=== PATIENT | female | born 1985 | race Caucasian/White ===

== ENCOUNTER 2021-10-14 14:54 | Emergency (ER) | payer OTHER ==
[2021-10-14 18:01] LABS: Appearance,Urine Clear (Clear); Bilirubin,Urine Negative (Negative); Blood,Urine Negative (Negative); Color,Urine Yellow; Glucose,Urine (UA) Negative (Negative); Ketones,Urine Negative (Negative); Leukocyte Esterase,Urine Negative (Negative); Nitrite,Urine Negative (Negative); Protein,Urine Negative (Negative); Specific Gravity,Urine 1.016 (1.001-1.035); Urobilinogen,Urine <2.0 mg/dL (<2.0)
[2021-10-14 18:21] VITALS: TEMP 98
[2021-10-14] MEDS ORDERED: SODIUM CHLORIDE 0.9% 1,000 ML IV STA (18:21)
[2021-10-14 18:53] LABS: Anisocytosis Slight; Basophils % (A) 0 %; Eosinophils # (A) 0.1 k/uL (0-0.7); Eosinophils % (A) 3 %; HGB 12.8 gm/dL (11.4-16.0); Lymphocytes # (A) 0.7 k/uL (1.0-4.8); Lymphocytes % (A) 32 %; MCH 31.3 pg (25.0-35.0); MCHC 32.7 g/dL (31.0-37.0); MCV 95.7 fL (80.0-100.0); Mean Platelet Volume 10.9; Monocytes # (A) 0.2 k/uL (0-1.0); Monocytes % (A) 9 %; Neutrophils # (A) 1.1 k/uL (1.3-7.7); Neutrophils % (A) 53 %; RBC 4.07 m/uL (3.80-5.40); RDW 16.8 % (11.5-15.5); WBC 2.1 k/uL (3.8-10.6)
[2021-10-14 19:00] LABS: African American GFR (CKD) >90 (>60 ml/min/1.73 sqM); Anion Gap 6 mmol/L; Blood Urea Nitrogen 10 mg/dL (7-17); Calcium 8.6 mg/dL (8.4-10.2); Carbon Dioxide 21 mmol/L (22-30); Chloride 109 mmol/L (98-107); Glucose 83 mg/dL (74-99); Magnesium 1.6 mg/dL (1.6-2.3); Non-African American GFR(CKD) >90 (>60 ml/min/1.73 sqM); Sodium 136 mmol/L (137-145)
[2021-10-14 19:06] LABS: Platelet Count 36 k/uL (150-450)
--- NOTE | 2021-10-14 19:22 | ED ---
General Adult HPI - General Chief complaint: Headache Stated complaint: Dizziness Time Seen by Provider: 10/14/21 18:09 Source: patient, RN notes reviewed Mode of arrival: EMS Limitations: no limitations - History of Present Illness Initial comments: This is a pleasant 36-year-old female who arise from sitting to her rehabilitation center where she is undergoing rehab for alcoholism. She presents today after having a near syncopal episode. Patient states she stood up after eating became lightheaded like she was going to pass out. Patient states that her blood pressure taken and it seemed below. She was sent here for evaluation. Patient states she did develop a headache after this but is actually feeling much better at this time. Patient states she was placed on yesterday. She denies any other medications that she has not taken before. She does take spironolactone. She denies any vision or hearing changes. No numbness or tingling. No focal weakness. She did not fall. There is no injury. Denies any neck pain. No difficulty with speech or swallowing. No history of cardiac disease. Lightheadedness and headache which has resolved. no fever or chills, no changes in vision or hearing, no sore throat or difficulty with speech, no neck pain, no chest pain or shortness of breath, no abdominal pain, no nausea or vomiting, no changes in urination or bowel movements, no numbness or tingling, no extremity pain, no skin rashes or lesions. - Related Data Allergies Allergy/AdvReac Type Severity Reaction Status Date / Time acetaminophen Allergy Anaphylaxis Verified 10/14/21 15:06 [From Darvocet-N] amitriptyline Allergy Hallucinati Verified 10/14/21 15:06 ons propoxyphene Allergy Anaphylaxis Verified 10/14/21 15:06 [From Darvocet-N] trazodone Allergy Hallucinati Verified 10/14/21 15:06 ons Review of Systems ROS Statement: Those systems with pertinent positive or pertinent negative responses have been documented in the HPI. ROS Other: All systems not noted in ROS Statement are negative. Past Medical History Past Medical History: No Reported History Additional Past Medical History / Comment(s): Migraine headache, thrombocytopenia, leukopenia, alcoholism History of Any Multi-Drug Resistant Organisms: None Reported Additional Past Surgical History / Comment(s): surgery for stomach ulcer Past Psychological History: Anxiety Smoking Status: Current every day smoker Past Alcohol Use History: None Reported Past Drug Use History: Marijuana General Exam - General Exam Comments Initial Comments: Healthy-appearing 36-year-old female who does not appear to be in any significant distress. Patient does not appear to be ill or toxic. Vital signs reviewed. Cranial nerves II through XII are intact. Limitations: no limitations General appearance: alert, in no apparent distress Head exam: Present: atraumatic, normocephalic, normal inspection Eye exam: Present: normal appearance, PERRL, EOMI. Absent: scleral icterus, conjunctival injection, periorbital swelling ENT exam: Present: normal exam, normal oropharynx, mucous membranes moist, TM's normal bilaterally, normal external ear exam. Absent: mucous membranes dry Neck exam: Present: normal inspection, full ROM. Absent: tenderness, meningismus, lymphadenopathy Respiratory exam: Present: normal lung sounds bilaterally. Absent: respiratory distress, wheezes, rales, rhonchi, stridor Cardiovascular Exam: Present: regular rate, normal rhythm, normal heart sounds. Absent: systolic murmur, diastolic murmur, rubs, gallop, clicks GI/Abdominal exam: Present: soft, normal bowel sounds. Absent: distended, tenderness, guarding, rebound, rigid Extremities exam: Present: normal inspection, full ROM, normal capillary refill. Absent: tenderness, pedal edema, joint swelling, calf tenderness Back exam: Present: normal inspection Neurological exam: Present: alert, oriented X3, CN II-XII intact, normal gait, other (No focal neurologic deficits. Frost Coma Scale is 15.). Absent: altered, motor sensory deficit, reflexes normal Psychiatric exam: Present: normal affect, normal mood Skin exam: Present: warm, dry, intact, normal color. Absent: rash Course Vital Signs 10/14/21 10/14/21 10/14/21 15:01 18:13 18:16 Temperature 98.4 F 98 F Pulse Rate 60 80 66 Pulse Rate [ Sitting Pulse Oximetery] Pulse Rate [ Standing Pulse Oximetery] Pulse Rate [ Supine] Respiratory 18 18 18 Rate Blood Pressure 97/38 145/56 147/57 Blood Pressure [Right Arm Sitting] Blood Pressure [Right Arm Standing] Blood Pressure [Right Arm Supine] O2 Sat by Pulse 99 98 99 Oximetry 10/14/21 19:54 Temperature Pulse Rate Pulse Rate [ 59 L Sitting Pulse Oximetery] Pulse Rate [ 64 Standing Pulse Oximetery] Pulse Rate [ 57 L Supine] Respiratory 20 Rate Blood Pressure Blood Pressure 135/55 [Right Arm Sitting] Blood Pressure 137/45 [Right Arm Standing] Blood Pressure 123/40 [Right Arm Supine] O2 Sat by Pulse 99 Oximetry - Reevaluation(s) Reevaluation #1: 10/14/21 19:25 Medical record is reviewed Symptoms are improved here in the emergency department Patient is informed of results and questions answered Patient in no distress Reevaluation #2: 10/14/21 20:05 Medical record is reviewed Symptoms are resolved, repeat neurological examination is normal. Patient alert and oriented 4, cranial nerves II through XII intact Patient is informed of results and questions answered Patient in no distress EKG Findings - EKG Comments: EKG Findings:: EKG done at 1831 and reviewed with ED attending physician reveals sinus bradycardia with a rate of 56, nonspecific T-wave abnormalities mostly related to what appears to be artifact. No other acute changes. Normal axis. Normal QRS morphology. Normal intervals. Medical Decision Making - Medical Decision Making Patient presents to likely consistent with near syncopal episode. We will order baseline laboratory work, EKG, orthostatics, urinalysis, and reevaluation. Patient's headache has resolved. However patient has low platelets. Will order a computed tomography scan after discussion with ED attending physician. Patient noted to have white blood cell, 2100, neutrophil count of 1100, lym phocytes of 700, The case was discussed in detail with ED attending physician. Presentation, findings, treatment plan discussed in detail. Patient reevaluated prior to discharge. I did review the patient's laboratory findings with her. Patient's blood dyscrasias or actually chronic for the patient as she has had this before. She states that her platelet count has been in the 20s and 30s previously. Patient's had a low white blood cell count as well. Patient has previous been referred to a charrer but did not go. Patient states that she knows that she needs to make an appointment. I'm going to provide her follow-up with him otology today. - Lab Data Result diagrams: 10/14/21 18:39 10/14/21 18:39 Lab Results 10/14/21 10/14/21 10/14/21 Range/Units 17:31 17:31 18:39 WBC 2.1 L (3.8-10.6) k/uL RBC 4.07 (3.80-5.40) m/uL Hgb 12.8 (11.4-16.0) gm/dL Hct 39.0 (34.0-46.0) % MCV 95.7 (80.0-100.0) fL MCH 31.3 (25.0-35.0) pg MCHC 32.7 (31.0-37.0) g/dL RDW 16.8 H (11.5-15.5) % Plt Count 36 L (150-450) k/uL MPV 10.9 Neutrophils % 53 % Lymphocytes % 32 % Monocytes % 9 % Eosinophils % 3 % Basophils % 0 % Neutrophils # 1.1 L (1.3-7.7) k/uL Lymphocytes # 0.7 L (1.0-4.8) k/uL Monocytes # 0.2 (0-1.0) k/uL Eosinophils # 0.1 (0-0.7) k/uL Basophils # 0.0 (0-0.2) k/uL Manual Slide Review Performed Anisocytosis Slight Sodium (137-145) mmol/L Potassium (3.5-5.1) mmol/L Chloride (98-107) mmol/L Carbon Dioxide (22-30) mmol/L Anion Gap mmol/L BUN (7-17) mg/dL Creatinine (0.52-1.04) mg/dL Est GFR (CKD-EPI)AfAm (>60 ml/min/1.73 sqM) Est GFR (CKD-EPI)NonAf (>60 ml/min/1.73 sqM) Glucose (74-99) mg/dL Calcium (8.4-10.2) mg/dL Magnesium (1.6-2.3) mg/dL Urine Color Yellow Urine Appearance Clear (Clear) Urine pH 7.0 (5.0-8.0) Ur Specific [place] 1.016 (1.001-1.035) Urine Protein Negative (Negative) Urine Glucose (UA) Negative (Negative) Urine Ketones Negative (Negative) Urine Blood Negative (Negative) Urine Nitrite Negative (Negative) Urine Bilirubin Negative (Negative) Urine Urobilinogen <2.0 (<2.0) mg/dL Ur Leukocyte Esterase Negative (Negative) Urine HCG, Qual Not Detected (Not Detectd) 10/14/21 Range/Units 18:39 WBC (3.8-10.6) k/uL RBC (3.80-5.40) m/uL Hgb (11.4-16.0) gm/dL Hct (34.0-46.0) % MCV (80.0-100.0) fL MCH (25.0-35.0) pg MCHC (31.0-37.0) g/dL RDW (11.5-15.5) % Plt Count (150-450) k/uL MPV Neutrophils % % Lymphocytes % % Monocytes % % Eosinophils % % Basophils % % Neutrophils # (1.3-7.7) k/uL Lymphocytes # (1.0-4.8) k/uL Monocytes # (0-1.0) k/uL Eosinophils # (0-0.7) k/uL Basophils # (0-0.2) k/uL Manual Slide Review Anisocytosis Sodium 136 L (137-145) mmol/L Potassium 5.0 (3.5-5.1) mmol/L Chloride 109 H (98-107) mmol/L Carbon Dioxide 21 L (22-30) mmol/L Anion Gap 6 mmol/L BUN 10 (7-17) mg/dL Creatinine 0.48 L (0.52-1.04) mg/dL Est GFR (CKD-EPI)AfAm >90 (>60 ml/min/1.73 sqM) Est GFR (CKD-EPI)NonAf >90 (>60 ml/min/1.73 sqM) Glucose 83 (74-99) mg/dL Calcium 8.6 (8.4-10.2) mg/dL Magnesium 1.6 (1.6-2.3) mg/dL Urine Color Urine Appearance (Clear) Urine pH (5.0-8.0) Ur Specific [place] (1.001-1.035) Urine Protein (Negative) Urine Glucose (UA) (Negative) Urine Ketones (Negative) Urine Blood (Negative) Urine Nitrite (Negative) Urine Bilirubin (Negative) Urine Urobilinogen (<2.0) mg/dL Ur Leukocyte Esterase (Negative) Urine HCG, Qual (Not Detectd) - Radiology Data Radiology results: report reviewed (No acute findings), image reviewed Disposition Clinical Impression: Syncope, near, Headache, Cigarette smoker Narrative: Chronic thrombocytopenia and leukopenia, headache resolved Disposition: HOME SELF-CARE Condition: Good Instructions (If sedation given, give patient instructions): Acute Headache (ED), Near Syncope (ED) Additional Instructions: Including proper hydration. Make a follow-up with the charrer as discussed. Follow-up with your regular physician as directed. Return to the ER immediately if any symptoms worsen, new symptoms arise, or any other problems develop. Is patient prescribed a controlled substance at d/c from ED?: No Referrals: Brendan Spencer MD [STAFF PHYSICIAN] - 1-2 days Time of Disposition: 20:07
--- NOTE | 2021-10-14 19:55 | CT ---
EXAMINATION TYPE: CT brain wo con DATE OF EXAM: 10/14/2021 COMPARISON: None HISTORY: COHN, dizzy, lightheaded, photophobia, nausea x [address] DLP: 1009.4 mGycm. Automated Exposure Control for Dose Reduction was Utilized. TECHNIQUE: CT scan of the head is performed without contrast. FINDINGS: There is no acute intracranial hemorrhage, mass effect, or midline shift identified. The ventricles and sulci are within normal limits in size. The globes are intact and the visualized sin uses are clear. IMPRESSION: No acute intracranial hemorrhage, mass effect, or midline shift is seen.
[2021-10-14 19:58] VITALS: BP 123/40; PULSE 57; RESP 20
[2021-10-14 20:21] LABS: INR 1.3 (<1.2); Partial Thromboplastin Time 26.1 sec (22.0-30.0); Prothrombin Time 13.6 sec (9.0-12.0)
== END 2021-10-14 20:31 | disposition home or self-care (01) ==
LOC: EC 14:54
DX: R55 Syncope and collapse (principal); R51.9 Headache, unspecified; F17.210 Nicotine dependence, cigarettes, uncomplicated; F12.90 Cannabis use, unspecified, uncomplicated
CPT/HCPCS: 36415; 70450; 80048; 81003; 81025; 83735; 85025; 85610; 85730; 93005; 96360; 99284

== ENCOUNTER 2022-08-22 19:31 | Emergency (ER) | payer OTHER ==
[2022-08-22 19:41] VITALS: BP 124/55; PULSE 108; TEMP 98
--- NOTE | 2022-08-22 20:02 | XR ---
EXAMINATION TYPE: XR tibia fibula LT DATE OF EXAM: 08/22/2022 COMPARISON: NONE HISTORY: Pain TECHNIQUE: 2 views FINDINGS: I see no fracture nor dislocation. Ankle joint and knee joint appear intact. There is Achil les calcaneal spurring. IMPRESSION: Calcaneal spurring. No fracture.
[2022-08-22] MEDS ORDERED: KETOROLAC 15 MG/ML 1 ML VIAL IM STA (20:57)
--- NOTE | 2022-08-22 21:13 | ED ---
Lower Extremity Injury HPI - General Chief Complaint: Extremity Injury, Lower Stated Complaint: left leg injury Time Seen by Provider: 08/22/22 20:37 Source: patient, RN notes reviewed Mode of arrival: wheelchair Limitations: no limitations - History of Present Illness Initial Comments: This is a 37-year-old female who presents to the emergency department for left leg pain. States that about a week ago, she hit her leg on the corner of a golf cart. She has since had increased pain and bruising. She has not taken any [id number] anti-inflammatories to treat the pain, however she does state that it is very bothersome. She has not been applying ice or doing anything else to treat her symptoms. She is still able to walk. States that she wants to make sure it is not broken. Denies any fevers, chills, sore throat, cough, dyspnea, chest pain, palpitations, abdominal pain, nausea, vomiting, diarrhea, back pain, or headaches. MD Complaint: leg injury Onset/Timin -: week(s) - Related Data Allergies Allergy/AdvReac Type Severity Reaction Status Date / Time acetaminophen Allergy Anaphylaxis Verified 10/14/21 15:06 [From Darvocet-N] amitriptyline Allergy Hallucinati Verified 10/14/21 15:06 ons propoxyphene Allergy Anaphylaxis Verified 10/14/21 15:06 [From Darvocet-N] trazodone Allergy Hallucinati Verified 10/14/21 15:06 ons Review of Systems ROS Statement: Those systems with pertinent positive or pertinent negative responses have been documented in the HPI. ROS Other: All systems not noted in ROS Statement are negative. Past Medical History Past Medical History: No Reported History Additional Past Medical History / Comment(s): Migraine headache, thrombocytopenia, leukopenia, alcoholism History of Any Multi-Drug Resistant Organisms: None Reported Additional Past Surgical History / Comment(s): surgery for stomach ulcer Past Psychological History: Anxiety Smoking Status: Current every day smoker Past Alcohol Use History: None Reported Past Drug Use History: Marijuana General Exam Limitations: no limitations General appearance: alert, in no apparent distress Head exam: Present: atraumatic, normocephalic, normal inspection Respiratory exam: Present: normal lung sounds bilaterally. Absent: respiratory distress, wheezes, rales, rhonchi, stridor Cardiovascular Exam: Present: regular rate, normal rhythm, normal heart sounds. Absent: systolic murmur, diastolic murmur, rubs, gallop, clicks Extremities exam: Present: other (Ecchymosis of the left tib-fib with a 3cm hematoma in the center. Minor tenderness to palpation. Full active and passive range of motion. 2+ dorsalis pedis and tibialis posterior pulses.) Neurological exam: Present: alert, oriented X3, CN II-XII intact Psychiatric exam: Present: normal affect, normal mood Course Vital Signs 08/22/22 08/22/22 19:36 22:17 Temperature 98 F Pulse Rate 108 H Respiratory 20 18 Rate Blood Pressure 124/55 O2 Sat by Pulse 97 Oximetry Medical Decision Making - Medical Decision Making This is a 37-year-old female who presents to the emergency department for left leg pain. Was pt. sent in by a medical professional or institution? @ -No Did you speak to anyone other than the patient for history? @ -No Did you review nursing and triage notes? @ -Yes, and I agree, it is accurate with regards to the patient's symptoms. Were old charts reviewed? @ -No Differential Diagnosis? @ -Differential Leg Pain: Leg fracture, leg sprain, DVT, PVD, arterial insufficiency, iliac artery aneurysm, cellulitis, compartment syndrome, tendinopathy, nerve entrapment, piriformis syndrome, osteoarthritis, rhabdomyolysis, myositis, cramping from an electrolyte imbalance, this is not meant to be an all inclusive list. X-rays interpreted by me (1pt min.)? @ -X-ray of the left tib-fib obtained. My interpretation identifies no acute fractures or dislocations. What testing was considered but not performed? (CT, X-rays, U/S, labs)? Why? @ -None What meds were considered but not given? Why? @ -None Did you discuss the management of the patient with other professionals? @ -No Did you reconcile home meds? @ -No Was smoking cessation discussed for >3mins.? @ -No Was critical care preformed (if so, how long)? @ -No Were there social determinants of health that impacted care today? How? (Homelessness, low income, unemployed, alcoholism, drug addiction, transportation, low edu. Level, literacy, decrease access to med. care, care home, rehab)? @ -No Was there de-escalation of care discussed even if they declined? (Discuss DNR or withdrawal of care, Hospice)? @ -No What co-morbidities impacted this encounter? (DM, HTN, Smoking, COPD, CAD, Cancer, CVA, Hep., AIDS, mental health diagnosis, sleep apnea, morbid obesity)? @ -None Was patient admitted / discharged? @ -Discharged. X-rays obtained revealing no acute findings. She was given IM Toradol for pain relief. She is advised to [id number] ibuprofen as needed for pain relief and to alternate with ice and heat as needed. Undiagnosed new problem with uncertain prognosis? @ -None Drug Therapy requiring intensive monitoring for toxicity (Heparin, Nitro, Insulin, Cardizem)? @ -None Were any procedures done? @ -None Diagnosis/symptom? @ -Left leg pain Acute, or Chronic, or Acute on Chronic? @ -Acute Uncomplicated (without systemic symptoms) or Complicated (systemic symptoms)? @ -Uncomplicated Side effects of treatment? @ -None Exacerbation, Progression, or Severe Exacerbation] @ -Not applicable Poses a threat to life or bodily function? @ -No Return precautions reviewed in depth, the patient is instructed to return to the emergency department with any new, worsening, or concerning symptoms. Patient verbalized understanding. This case was discussed in detail with the attending ED physician, Dr. Galvan. Presentation, findings, and treatment plan discussed in detail as well. - Radiology Data Radiology results: report reviewed, image reviewed Disposition Clinical Impression: Contusion of left lower leg Disposition: HOME SELF-CARE Instructions (If sedation given, give patient instructions): Leg Pain (ED) Additional Instructions: Return to the emergency department with any new, worsening, or concerning symptoms. Take ibuprofen as needed for pain relief. You can apply ice or heat, whichever you find more beneficial. Try wrapping the leg with an robbie bandage. Follow up with your primary care provider in 1-2 days. Is patient prescribed a controlled substance at d/c from ED?: No Referrals: None,Stated [Primary Care Provider] - 1-2 days
[2022-08-22 22:18] VITALS: RESP 18
== END 2022-08-22 22:17 | disposition home or self-care (01) ==
LOC: EC 19:31
DX: S80.12XA Contusion of left lower leg, initial encounter (principal); F41.9 Anxiety disorder, unspecified; F17.200 Nicotine dependence, unspecified, uncomplicated; F12.90 Cannabis use, unspecified, uncomplicated; Z88.6 Allergy status to analgesic agent; Z88.8 Allergy status to other drugs, medicaments and biological substances; W21.13XA Struck by golf club, initial encounter
CPT/HCPCS: 73590; 99283; 96372; J1885

== ENCOUNTER 2023-10-05 10:04 | Inpatient (IN) | payer OTHER ==
--- NOTE | 2023-10-05 10:29 | ED ---
Abdominal Pain HPI - General Source: patient, RN notes reviewed Mode of arrival: ambulatory Limitations: no limitations - History of Present Illness MD Complaint: abdominal pain <Samia Jimenez - Last Filed: 10/05/23 17:07> <Wendy Briceno - Last Filed: 10/08/23 00:16> - General Chief Complaint: Abdominal Pain Stated Complaint: Abdominal Pain Time Seen by Provider: 10/05/23 10:17 - History of Present Illness Initial Comments: This is a 38-year-old female who presents to the emergency department for abdominal pain and hematemesis. Patient is currently at [facility] [place] for alcohol abuse. States that early this morning, she started to become nauseous and vomit. The vomit was dark red blood mixed in with her saliva. States that she also had clots mixed in with this. Several months ago she did end up developing a tear in her esophagus that required surgical intervention. Reports upper abdominal pain as well. Also has a headache and feels somewhat lightheaded. Not taking any blood thinners. (Samia Jimenez) - Related Data Home Medications Medication Instructions Recorded Confirmed Calc/Mag/Zinc/Cassandra D 1 tab PO TID PRN 10/05/23 10/05/23 Folic Acid 1 mg PO DAILY 10/05/23 10/05/23 Ibuprofen [Motrin Ib] 600 mg PO Q4H PRN 10/05/23 10/05/23 Lactulose 20 gm PO TID PRN 10/05/23 10/05/23 Melatonin 3 mg PO HS 10/05/23 10/05/23 Multivitamins, Thera [Multivitamin 1 tab PO DAILY 10/05/23 10/05/23 (formulary)] Omeprazole [PriLOSEC] 20 mg PO DAILY 10/05/23 10/05/23 Spironolactone [Aldactone] 50 mg PO DAILY 10/05/23 10/05/23 Thiamine [Vitamin B-1] 100 mg PO DAILY 10/05/23 10/05/23 Torsemide [Demadex] 10 mg PO DAILY 10/05/23 10/05/23 busPIRone HCl [Buspar] 10 mg PO TID PRN 10/05/23 10/05/23 Allergies Allergy/AdvReac Type Severity Reaction Status Date / Time acetaminophen Allergy Anaphylaxis Verified 10/05/23 11:17 [From Darvocet-N] amitriptyline Allergy Hallucinati Verified 10/05/23 11:17 ons propoxyphene Allergy Anaphylaxis Verified 10/05/23 11:17 [From Darvocet-N] trazodone Allergy Hallucinati Verified 10/05/23 11:17 ons Review of Systems ROS Other: All systems not noted in ROS Statement are negative. <Samia Jimenez - Last Filed: 10/05/23 17:07> ROS Other: All systems not noted in ROS Statement are negative. <Wendy Briceno - Last Filed: 10/08/23 00:16> ROS Statement: Those systems with pertinent positive or pertinent negative responses have been documented in the HPI. Past Medical History Past Medical History: No Reported History Additional Past Medical History / Comment(s): Migraine headache, thrombocyto penia, leukopenia, alcoholism History of Any Multi-Drug Resistant Organisms: None Reported Additional Past Surgical History / Comment(s): surgery for stomach ulcer, esophageal tear surgery Past Psychological History: Anxiety Smoking Status: Current every day smoker Past Alcohol Use History: None Reported Past Drug Use History: Marijuana <Samia Jimenez - Last Filed: 10/05/23 17:07> General Exam Limitations: no limitations General appearance: alert, anxious Head exam: Present: atraumatic, normocephalic, normal inspection Respiratory exam: Present: normal lung sounds bilaterally. Absent: respiratory distress, wheezes, rales, rhonchi, stridor Cardiovascular Exam: Present: regular rate, normal rhythm, normal heart sounds. Absent: systolic murmur, diastolic murmur, rubs, gallop, clicks GI/Abdominal exam: Present: soft, tenderness (Upper abdomen), normal bowel sounds. Absent: distended Neurological exam: Present: alert, oriented X3, CN II-XII intact Psychiatric exam: Present: normal affect, normal mood Skin exam: Present: warm, dry, intact, normal color. Absent: rash <Samia Jimenez - Last Filed: 10/05/23 17:07> Course Vital Signs 10/05/23 10/05/23 10/05/23 10:09 15:00 17:37 Temperature 98.1 F Pulse Rate 76 76 79 Respiratory 18 16 12 Rate Blood Pressure 129/69 107/33 119/46 O2 Sat by Pulse 100 98 99 Oximetry Medical Decision Making - Lab Data Result diagrams: 10/05/23 10:31 10/05/23 10:31 - Radiology Data Radiology results: report reviewed, image reviewed <Samia Jimenez - Last Filed: 10/05/23 17:07> - Lab Data Result diagrams: 10/06/23 15:42 10/06/23 09:55 <Wendy Briceno - Last Filed: 10/08/23 00:16> - Medical Decision Making This is a 38 year old female who presents to the emergency department for abdominal pain and hematemesis. Was pt. sent in by a medical professional or institution? @ -[facility] Did you speak to anyone other than the patient for history? @ -No Did you review nursing and triage notes? @ -Yes, and I agree, it is accurate with regards to the patient's symptoms. Were old charts reviewed? @ -No Differential Diagnosis? @ -Differential Abdominal Pain Women: Appendicitis, Cholecystitis, diverticulosis, ischemic bowel, pancreatitis, hepatitis, UTI, gastroenteritis, AAA, incarcerated hernia, bowel obstruction, constipation, inflammatory bowel, hepatitis, peptic ulcer disease, splenic infarction, perforated viscus, vulvitis, ovarian torsion, PID, kidney stone, placenta abruption, this is not meant to be an all-inclusive list EKG interpreted by me (3pts min.)? @ -EKG interpreted by me demonstrating the following: X-rays interpreted by me (1pt min.)? @ -Not obtained CT interpreted by me (1pt min.)? @ -CT of the abdomen and pelvis obtained. My interpretation identifies no active GI bleeding. U/S interpreted by me (1pt. min.)? @ -Not obtained What testing was considered but not performed? (CT, X-rays, U/S, labs)? Why? @ -None What meds were considered but not given? Why? @ -None Did you discuss the management of the patient with other professionals? @ -Yes, Dr. Weber, who accepts the patient for admission. Did you reconcile home meds? @ -Yes Was smoking cessation discussed for >3mins.? @ -I discussed smoking cessation for greater than 3 minutes. The risk of smoking were discussed with the patient including but not limited to risks of cancer, stroke, coronary artery disease and COPD. Also discussed with patient were multiple methods of quitting smoking. Lastly we discussed the financial cost of smoking. Was critical care preformed (if so, how long)? @ -No Were there social determinants of health that impacted care today? How? (Homelessness, low income, unemployed, alcoholism, drug addiction, transportation, low edu. Level, literacy, decrease access to med. care, detention, rehab)? @ -Alcoholism, causing the liver cirrhosis and multitude of other health problems. Was there de-escalation of care discussed even if they declined? (Discuss DNR or withdrawal of care, Hospice)? @ -No What co-morbidities impacted this encounter? (DM, HTN, Smoking, COPD, CAD, Cancer, CVA, Hep., AIDS, mental health diagnosis, sleep apnea, morbid obesity)? @ -Alcoholism, smoking Was patient admitted / discharged? @ -Admitted. Lab work obtained demonstrating leukopenia with a white blood cell count of 2.1 and thrombocytopenia with a platelet count of 19. Patient does report that this is chronic, but does not currently have a drawing press operator. She has an appointment next month with a drawing press operator at [facility]. LFTs are also elevated and troponin bumped at 0.041. CT scan of the abdomen and pelvis obtained demonstrating no definitive evidence of active GI bleeding at this time. She does have cirrhosis with signs of portal venous hypertension including splenomegaly and recanalized umbilical vein. Cholelithiasis is also present. Patient was still spitting up blood clots in the emergency department, but did not have any yaz hematemesis. With her history of esophageal tear with associated thrombocytopenia, there is concern about progression of symptoms. Patient admitted to medicine for hematemesis. Consult placed for gastroenterology. Serial troponins ordered as well. Undiagnosed new problem with uncertain prognosis? @ -None Drug Therapy requiring intensive monitoring for toxicity (Heparin, Nitro, Insulin, Cardizem)? @ -None Were any procedures done? @ -None Diagnosis/symptom? @ -Hematemesis, thrombocytopenia, elevated troponin Acute, or Chronic, or Acute on Chronic? @ -Acute Uncomplicated (without systemic symptoms) or Complicated (systemic symptoms)? @ -Complicated Side effects of treatment? @ -None Exacerbation, Progression, or Severe Exacerbation] @ -Not applicable Poses a threat to life or bodily function? @ -Yes This case was discussed in detail with the attending ED physician, Dr. Briceno. Presentation, findings, and treatment plan discussed in detail as well. (Samia Jimenez) - Lab Data Lab Results 10/05/23 10/05/23 10/05/23 Range/Units 10:31 10:31 10:31 WBC 2.1 L (3.8-10.6) k/uL RBC 3.27 L (3.80-5.40) m/uL Hgb 11.7 (11.4-16.0) gm/dL Hct 35.0 (34.0-46.0) % MCV 106.8 H (80.0-100.0) fL MCH 35.6 H (25.0-35.0) pg MCHC 33.3 (31.0-37.0) g/dL RDW 16.0 H (11.5-15.5) % Plt Count 19 L* (150-450) k/uL MPV 9.2 Neutrophils % 48 % Lymphocytes % 35 % Monocytes % 10 % Eosinophils % 2 % Basophils % 1 % Neutrophils # 1.0 L (1.3-7.7) k/uL Lymphocytes # 0.7 L (1.0-4.8) k/uL Monocytes # 0.2 (0-1.0) k/uL Eosinophils # 0.1 (0-0.7) k/uL Basophils # 0.0 (0-0.2) k/uL Manual Slide Review Performed Macrocytosis Marked A Sodium 137 (137-145) mmol/L Potassium 3.6 (3.5-5.1) mmol/L Chloride 104 (98-107) mmol/L Carbon Dioxide 24 (22-30) mmol/L Anion Gap 9 mmol/L BUN 15 (7-17) mg/dL Creatinine 0.75 (0.52-1.04) mg/dL Est GFR (CKD-EPI)AfAm >90 (>60 ml/min/1.73 sqM) Est GFR (CKD-EPI)NonAf >90 (>60 ml/min/1.73 sqM) Glucose 87 (74-99) mg/dL Plasma Lactic Acid Yoseph 0.9 (0.7-2.0) mmol/L Calcium 9.2 (8.4-10.2) mg/dL Total Bilirubin 5.2 H (0.2-1.3) mg/dL Conjugated Bilirubin (0.0-0.3) mg/dL Unconjugated Bilirubin (0.0-1.1) mg/dL Delta Bilirubin (0.0-0.2) mg/dL AST 88 H (14-36) U/L ALT 37 H (4-34) U/L Alkaline Phosphatase 99 (38-126) U/L Troponin I (0.000-0.034) ng/mL Total Protein 7.1 (6.3-8.2) g/dL Albumin 3.5 (3.5-5.0) g/dL Amylase 123 H (30-110) U/L Lipase 460 H (23-300) U/L Vitamin B12 (200.0-944.0) pg/mL Folate (4.40-31.00) ng/mL HCG, Qual Not Detected Blood Type Confirm 10/05/23 10/05/23 10/05/23 Range/Units 10:31 10:31 11:38 WBC (3.8-10.6) k/uL RBC (3.80-5.40) m/uL Hgb (11.4-16.0) gm/dL Hct (34.0-46.0) % MCV (80.0-100.0) fL MCH (25.0-35.0) pg MCHC (31.0-37.0) g/dL RDW (11.5-15.5) % Plt Count (150-450) k/uL MPV Neutrophils % % Lymphocytes % % Monocytes % % Eosinophils % % Basophils % % Neutrophils # (1.3-7.7) k/uL Lymphocytes # (1.0-4.8) k/uL Monocytes # (0-1.0) k/uL Eosinophils # (0-0.7) k/uL Basophils # (0-0.2) k/uL Manual Slide Review Macrocytosis Sodium (137-145) mmol/L Potassium (3.5-5.1) mmol/L Chloride (98-107) mmol/L Carbon Dioxide (22-30) mmol/L Anion Gap mmol/L BUN (7-17) mg/dL Creatinine (0.52-1.04) mg/dL Est GFR (CKD-EPI)AfAm (>60 ml/min/1.73 sqM) Est GFR (CKD-EPI)NonAf (>60 ml/min/1.73 sqM) Glucose (74-99) mg/dL Plasma Lactic Acid Yoseph (0.7-2.0) mmol/L Calcium (8.4-10.2) mg/dL Total Bilirubin 5.2 H (0.2-1.3) mg/dL Conjugated Bilirubin 0.0 (0.0-0.3) mg/dL Unconjugated Bilirubin 3.1 H (0.0-1.1) mg/dL Delta Bilirubin 2.1 H (0.0-0.2) mg/dL AST (14-36) U/L ALT (4-34) U/L Alkaline Phosphatase (38-126) U/L Troponin I 0.041 H* (0.000-0.034) ng/mL Total Protein (6.3-8.2) g/dL Albumin (3.5-5.0) g/dL Amylase (30-110) U/L Lipase (23-300) U/L Vitamin B12 >1800.0 H (200.0-944.0) pg/mL Folate (4.40-31.00) ng/mL HCG, Qual Blood Type Confirm A Positive 10/05/23 Range/Units 11:38 WBC (3.8-10.6) k/uL RBC (3.80-5.40) m/uL Hgb (11.4-16.0) gm/dL Hct (34.0-46.0) % MCV (80.0-100.0) fL MCH (25.0-35.0) pg MCHC (31.0-37.0) g/dL RDW (11.5-15.5) % Plt Count (150-450) k/uL MPV Neutrophils % % Lymphocytes % % Monocytes % % Eosinophils % % Basophils % % Neutrophils # (1.3-7.7) k/uL Lymphocytes # (1.0-4.8) k/uL Monocytes # (0-1.0) k/uL Eosinophils # (0-0.7) k/uL Basophils # (0-0.2) k/uL Manual Slide Review Macrocytosis Sodium (137-145) mmol/L Potassium (3.5-5.1) mmol/L Chloride (98-107) mmol/L Carbon Dioxide (22-30) mmol/L Anion Gap mmol/L BUN (7-17) mg/dL Creatinine (0.52-1.04) mg/dL Est GFR (CKD-EPI)AfAm (>60 ml/min/1.73 sqM) Est GFR (CKD-EPI)NonAf (>60 ml/min/1.73 sqM) Glucose (74-99) mg/dL Plasma Lactic Acid Yoseph (0.7-2.0) mmol/L Calcium (8.4-10.2) mg/dL Total Bilirubin (0.2-1.3) mg/dL Conjugated Bilirubin (0.0-0.3) mg/dL Unconjugated Bilirubin (0.0-1.1) mg/dL Delta Bilirubin (0.0-0.2) mg/dL AST (14-36) U/L ALT (4-34) U/L Alkaline Phosphatase (38-126) U/L Troponin I (0.000-0.034) ng/mL Total Protein (6.3-8.2) g/dL Albumin (3.5-5.0) g/dL Amylase (30-110) U/L Lipase (23-300) U/L Vitamin B12 (200.0-944.0) pg/mL Folate 29.30 (4.40-31.00) ng/mL HCG, Qual Blood Type Confirm Disposition Time of Disposition: 13:17 <Samia Jimenez - Last Filed: 10/05/23 17:07> <Wendy Briceno - Last Filed: 10/08/23 00:16> Clinical Impression: Hematemesis, Thrombocytopenia, Elevated troponin, Nicotine dependence Disposition: ADMITTED IP TO THIS HOSP
[2023-10-05] MEDS: MORPHINE SULFATE 4 MG/ML SYRINGE IVP STA (10:54)
[2023-10-05] MEDS: PANTOPRAZOLE 40 MG/10 ML VIAL IVP STA (10:55)
[2023-10-05] MEDS: ONDANSETRON 4 MG/2 ML VIAL IVP STA (10:55)
[2023-10-05] MEDS: SODIUM CHLORIDE 0.9% 1,000 ML IV STA (10:56)
[2023-10-05 10:58] LABS: Basophils % (A) 1 %; Eosinophils # (A) 0.1 k/uL (0-0.7); Eosinophils % (A) 2 %; HGB 11.7 gm/dL (11.4-16.0); Lymphocytes # (A) 0.7 k/uL (1.0-4.8); Lymphocytes % (A) 35 %; MCH 35.6 pg (25.0-35.0); MCHC 33.3 g/dL (31.0-37.0); MCV 106.8 fL (80.0-100.0); Macrocytosis Marked; Mean Platelet Volume 9.2; Monocytes # (A) 0.2 k/uL (0-1.0); Monocytes % (A) 10 %; Neutrophils % (A) 48 %; RBC 3.27 m/uL (3.80-5.40); WBC 2.1 k/uL (3.8-10.6)
[2023-10-05 11:01] LABS: HCG,Qualitative Serum Not Detected
[2023-10-05 11:04] LABS: ALT 37 U/L (4-34); AST 88 U/L (14-36); African American GFR (CKD) >90 (>60 ml/min/1.73 sqM); Albumin 3.5 g/dL (3.5-5.0); Alkaline Phosphatase 99 U/L (38-126); Amylase 123 U/L (30-110); Anion Gap 9 mmol/L; Blood Urea Nitrogen 15 mg/dL (7-17); Calcium 9.2 mg/dL (8.4-10.2); Carbon Dioxide 24 mmol/L (22-30); Chloride 104 mmol/L (98-107); Glucose 87 mg/dL (74-99); Lipase 460 U/L (23-300); Non-African American GFR(CKD) >90 (>60 ml/min/1.73 sqM); Potassium 3.6 mmol/L (3.5-5.1); Sodium 137 mmol/L (137-145); Total Bilirubin 5.2 mg/dL (0.2-1.3); Total Protein 7.1 g/dL (6.3-8.2)
[2023-10-05 11:26] LABS: Platelet Count 19 k/uL (150-450)
--- NOTE | 2023-10-05 12:13 | CT ---
EXAMINATION: CTA ABDOMEN AND PELVIS WITHOUT AND WITH IV CONTRAST DATE OF EXAMINATION: 10/05/2023. COMPARISON: None available. INDICATION: Hematemesis. PROCEDURE: Axial CT of the abdomen and pelvis was performed with contrast and sagittal and coronal r eformatted images were performed. 100 mL of Isovue-[address] dose lowering selene hniques were used, to include: automated exposure control, adjustment for patient size, and/or use of iterative reconstruction. FINDINGS: LOWER CHEST : The visualized lung bases are clear. There are no pleural or pericardial effusions. ABDOMEN: Liver and Biliary system: There is a markedly nodular contour to the liver which is compatible with cirrhosis. There is a large caliber recanalized umbilical vein. Adrenal glands: Normal. Kidneys and ureters: Normal. Spleen: The spleen is enlarged measuring 15.1 cm in AP dimension and 16.6 L in craniocaudal dimensio n. Pancreas: Normal. Gallbladder: Several gallstones are seen within the gallbladder. Lymph nodes, Peritoneum and mesentery: There is no mesenteric or retroperitoneal lymphadenopathy. Gastrointestinal tract: There are no dilated loops of bowel or free intraperitoneal air. The appe ndix is not clearly seen with no secondary changes of appendicitis identified. Aorta/IVC: No aortic aneurysm. IVC normal. Abdominal wall: Moderate sized umbilical hernia containing fat and the large caliber recanalized umb ilical vein.. PELVIS: Fluid: There is no free fluid in the pelvis. Lymph Nodes: There is no pelvic or inguinal lymphadenopathy.. Urinary bladder: Normal. BONES: There are no osseous destructive lesions.. ADDITIONAL SIGNIFICANT FINDINGS: None. IMPRESSION: 1. No definitive evidence of active GI bleeding at this time. 2. Cirrhosis with signs of portal venous hypertension including splenomegaly and recanalized umbilica l vein 3. Cholelithiasis.
[2023-10-05 13:08] LABS: Bilirubin, Delta 2.1 mg/dL (0.0-0.2); Bilirubin,Unconjugated 3.1 mg/dL (0.0-1.1); Total Bilirubin 5.2 mg/dL (0.2-1.3)
[2023-10-05] MEDS ORDERED: NALOXONE 0.4 MG/ML 1 ML VIAL IV PRN (13:19)
[2023-10-05] MEDS ORDERED: ZINC PO PRN (13:22)
[2023-10-05] MEDS ORDERED: MAG PO PRN (13:22)
[2023-10-05] MEDS ORDERED: VITA D PO PRN (13:22)
[2023-10-05] MEDS ORDERED: CALC PO PRN (13:22)
[2023-10-05] MEDS: LACTULOSE 20 GM/30 ML CUP PO PRN (17:32)
[2023-10-05] MEDS: ONDANSETRON 4 MG/2 ML VIAL IVP PRN (17:33)
[2023-10-05] MEDS: MORPHINE SULFATE 2 MG/ML SYRINGE IVP PRN (17:33)
[2023-10-05] MEDS: busPIRone HCl 10 MG TAB PO PRN (20:33)
[2023-10-05] MEDS: MELATONIN 3 MG TABLET PO SCH (20:34)
[2023-10-05] MEDS ORDERED: LORazepam 2 MG/ML INJ IV PRN (21:16)
[2023-10-05] MEDS: LORazepam 2 MG/ML INJ IV PRN (22:12)
--- NOTE | 2023-10-05 23:57 | P.HPIM ---
History of Present Illness H&P Date: 10/05/23 Chief Complaint: Abdominal pain Patient is a 38-year-old female with a past medical history of migraine headaches, chronic thrombocytopenia, alcohol use disorder, anxiety and currently everyday smoker and marijuana use presents to ER with complaints of spitting up blood. Patient is also complaining of epigastric abdominal pain. Patient is at [facility] and today morning she started having nausea send episode of vomiting. Since then she has been having spitting Gage with blood-tinged. Denies any blood clots. Patient states that she had history of vaginal tear about few months ago and status post repair at [facility]. Patient has been still drinking and recently admitted to [facility]. Denies any fever or chills. Denies any sputum production. Denies any significant cough. Patient states that she does have significant heart murmur and a leaky valve, supposed to get her valve surgery but could not be able to done due to her platelet count being too low.. EKG showed sinus rhythm with sinus arrhythmia CTA abdomen pelvis was done showed no definite evidence of active GI bleeding at this time. Cirrhosis with signs of portal hypertension including splenomegaly and recanalized umbilical vein. Cholelithiasis. Laboratory test showed WBC 2.1 hemoglobin 11.7 MCV 106.8 and platelets 19 Sodium 137 potassium 3.6 chloride 104 bicarb is 24 BUN 15 and creatinine 0.75 and blood sugar 87 Bilirubin level is 5.2 unconjugated 3.1 AST 88 ALT 37 alk phos 99 Troponin 0.041, 0.061 and 0.058 Amylase 123 and lipase 460 Review of Systems Constitutional: Patient denies any fever or chills . No generalized weakness or weight loss. Abdomen: Patient complains of nausea and blood-tinged sputum and epigastric abdo gabby pain. Cardiovascular: Patient denies any chest pain or short of breath no palpitations. Respiratory: patient denied any cough is from production. No shortness of breath Neurologic: Patient denied any numbness or tingling headache. Musculoskeletal: Patient denies any complaints of joint swelling or deformity. Skin: Negative Psychiatric: Negative Endocrine: No heat or cold intolerance. No recent weight gain. Genitourinary: No dysuria or hematuria. All other 14 point ROS negative except the above Past Medical History Past Medical History: No Reported History Additional Past Medical History / Comment(s): Migraine headache, thrombocytopenia, leukopenia, alcoholism History of Any Multi-Drug Resistant Organisms: None Reported Additional Past Surgical History / Comment(s): surgery for stomach ulcer, esophageal tear surgery Past Psychological History: Anxiety Smoking Status: Current every day smoker Past Alcohol Use History: None Reported Past Drug Use History: Marijuana Medications and Allergies Home Medications Medication Instructions Recorded Confirmed Type Calc/Mag/Zinc/Cassandra D 1 tab PO TID PRN 10/05/23 10/05/23 History Folic Acid 1 mg PO DAILY 10/05/23 10/05/23 History Ibuprofen [Motrin Ib] 600 mg PO Q4H PRN 10/05/23 10/05/23 History Lactulose 20 gm PO TID PRN 10/05/23 10/05/23 History Melatonin 3 mg PO HS 10/05/23 10/05/23 History Multivitamins, Thera [Multivitamin 1 tab PO DAILY 10/05/23 10/05/23 History (formulary)] Omeprazole [PriLOSEC] 20 mg PO DAILY 10/05/23 10/05/23 History Spironolactone [Aldactone] 50 mg PO DAILY 10/05/23 10/05/23 History Thiamine [Vitamin B-1] 100 mg PO DAILY 10/05/23 10/05/23 History Torsemide [Demadex] 10 mg PO DAILY 10/05/23 10/05/23 History busPIRone HCl [Buspar] 10 mg PO TID PRN 10/05/23 10/05/23 History Allergies Allergy/AdvReac Type Severity Reaction Status Date / Time acetaminophen Allergy Anaphylaxis Verified 10/05/23 11:17 [From Darvocet-N] amitriptyline Allergy Hallucinati Verified 10/05/23 11:17 ons propoxyphene Allergy Anaphylaxis Verified 10/05/23 11:17 [From Darvocet-N] trazodone Allergy Hallucinati Verified 10/05/23 11:17 ons Physical Exam Vitals: Vital Signs Temp Pulse Resp BP Pulse Ox 10/05/23 10:09 98.1 F 76 18 129/69 100 Intake and Output 10/04/23 10/05/23 10/05/23 22:59 06:59 14:59 Other: Weight 52.617 kg PHYSICAL EXAMINATION: Patient is lying in the bed comfortably, no acute distress, awake alert and oriented.. HEENT: Normocephalic. Neck is supple. Pupils reactive. Nostrils clear. Oral cavity is moist. Neck reveals no JVD, carotid bruits, or thyromegaly. CHEST EXAMINATION: Trachea is central. Symmetrical expansion. Lung wong clear to auscultation and percussion. CARDIAC: Normal S1, S2 with no gallops. Systolic murmur present. ABDOMEN: Soft. Bowel sounds normal. No organomegaly. No abdominal bruits. Extremities: reveal no edema. No clubbing or cyanosis Neurologically awake, alert, oriented x3 with well-coordinated movements. No focal deficits noted Skin: No rash or skin lesions. Psychiatric: Coperative. Nonsuicidal, anxious Musculoskeletal: No joint swelling or deformity. Normal range of motion. Results CBC & Chem 7: 10/05/23 10:31 10/05/23 10:31 Labs: Abnormal Lab Results - Last 24 Hours (Table) 10/05/23 10/05/23 10/05/23 Range/Units 10:31 10:31 10:31 WBC 2.1 L (3.8-10.6) k/uL RBC 3.27 L (3.80-5.40) m/uL MCV 106.8 H (80.0-100.0) fL MCH 35.6 H (25.0-35.0) pg RDW 16.0 H (11.5-15.5) % Plt Count 19 L* (150-450) k/uL Neutrophils # 1.0 L (1.3-7.7) k/uL Lymphocytes # 0.7 L (1.0-4.8) k/uL Macrocytosis Marked A Total Bilirubin 5.2 H (0.2-1.3) mg/dL Unconjugated Bilirubin (0.0-1.1) mg/dL Delta Bilirubin (0.0-0.2) mg/dL AST 88 H (14-36) U/L ALT 37 H (4-34) U/L Troponin I 0.041 H* (0.000-0.034) ng/mL Amylase 123 H (30-110) U/L Lipase 460 H (23-300) U/L 10/05/23 Range/Units 11:38 WBC (3.8-10.6) k/uL RBC (3.80-5.40) m/uL MCV (80.0-100.0) fL MCH (25.0-35.0) pg RDW (11.5-15.5) % Plt Count (150-450) k/uL Neutrophils # (1.3-7.7) k/uL Lymphocytes # (1.0-4.8) k/uL Macrocytosis Total Bilirubin 5.2 H (0.2-1.3) mg/dL Unconjugated Bilirubin 3.1 H (0.0-1.1) mg/dL Delta Bilirubin 2.1 H (0.0-0.2) mg/dL AST (14-36) U/L ALT (4-34) U/L Troponin I (0.000-0.034) ng/mL Amylase (30-110) U/L Lipase (23-300) U/L Thrombosis Risk Factor Assmnt - DVT/VTE Prophylaxis DVT/VTE Prophylaxis: Mechanical Prophylaxis ordered Assessment and Plan Assessment: Hematemesis. Possible upper GI bleed. Patient is spitting up streaks of bright red blood with saliva. History of repeat of esophageal tear few months ago Alcohol use disorder currently at [facility] Evaded troponin level possible demand ischemia Valvular heart disease patient was told she is not a surgical candidate due to low platelet count. Chronic thrombocytopenia, leukopenia and macrocytosis due to alcoholic liver disease Alcohol liver cirrhosis with signs of portal hypertension Hyperbilirubinemia Alcoholic hepatitis with elevated liver enzymes Anxiety Current everyday smoker DVT prophylaxis SCDs Plan: Patient will be continued on PPI IV daily and gentle IV hydration. Started back on home blood pressure medications including torsemide and Aldactone and multivitamin supplementation. Continue with alcohol withdrawal protocol. Monitor H&H. Follow-up serial troponins. Cardiology and GI and also hematology was consulted for evaluation. Follow-up closely. Time with Patient: Greater than 30
[2023-10-06] MEDS: FOLIC ACID 1 MG TAB PO SCH (08:36)
[2023-10-06] MEDS: THIAMINE 100 MG TAB PO SCH (08:36)
[2023-10-06] MEDS: MULTIVITAMINS, THERA 1 EACH TAB PO SCH (08:36)
[2023-10-06] MEDS: TORSEMIDE 20 MG TAB PO SCH (08:36)
[2023-10-06] MEDS: PANTOPRAZOLE 40 MG/10 ML VIAL IV SCH (08:36)
[2023-10-06] MEDS: SPIRONOLACTONE 25 MG TAB PO SCH (08:36)
[2023-10-06] MEDS: MORPHINE SULFATE 4 MG/ML SYRINGE IV PRN (08:41)
[2023-10-06] MEDS ORDERED: NON FORMULARY DRUG (Omeprazole 20 MG Capsule.Dr) PO SCH (09:00)
--- NOTE | 2023-10-06 09:12 | P.CONS ---
History of Present Illness - Reason for Consult Consult date: 10/06/23 Hematemesis Requesting physician: Samia Jimenez - Chief Complaint Hematemesis - History of Present Illness This is a 38-year-old female who was at [facility] for alcohol rehabilitation and started vomiting blood. She states she vomited blood 4-5 times. She has a longstanding history of alcohol abuse states that she has been drinking all of her life a pint of fifth a day. She reports that she does not follow with any liver specialist. She has been hospitalized sounds like recently in the last couple months. States that she has had vomiting of blood in the past and underwent an EGD about 2 months ago at [facility] in [place] and states that she did have esophageal varices. She states that last time that she had any bloody emesis was at 2:00 yesterday afternoon. She states that she was never formally diagnosed with liver disease or liver cirrhosis, but again has not followed with any operations scheduler as recommended in the past according to patient. She does appear though that she is taking Aldactone 50 mg daily as well as lactulose 20 g 3 times daily as needed according to home meds. She was noted to have severe thrombocytopenia, pancytopenia, elevated liver enzymes, elevated troponins. Patient was admitted with consultation to gastroenterology, hematology, and cardiology. Patient states that this time that she still has some abdominal tenderness, she is hungry she denies any nausea or vomiting. Patient is quite jaundiced. Admitting labs WBC 2.1 hemoglobin 11.7 hematocrit 35 platelet count 19,000 sodium 137 potassium 3.6 BUN 15 creatinine 0.75 total bilirubin 5.2 AST 88 ALT 37 alkaline phosphatase 99 amylase 123 lipase 460, last troponin 0.058 CT angiogram abdomen and pelvis: No definitive evidence of active GI bleeding at this time. Cirrhosis with signs of portal venous hypertension including splenomegaly and recanalized umbilical vein. Cholelithiasis. Review of Systems REVIEW OF SYSTEMS: CARDIOPULMONARY: No chest pain or shortness of breath. Gastrointestinal: abdominal pain. Patient presented with bloody emesis, dark with clots. No nausea or vomiting currently. Denies any blood in her stool. GENITOURINARY: No dysuria or hematuria. MUSCULOSKELETAL: Reports normal range of motion. SKIN: No rashes. No jaundice. ENDOCRINE: No chills, fevers. No excessive weight gain or loss. No polydipsia or polyuria. PSYCHIATRIC: Unremarkable. NEUROLOGY: No change in mental status. Denies dizziness, headache. ENT: Vision unremarkable. CONSTITUTIONAL: No recent weight loss. No fever, chills, night sweats. Past Medical History Past Medical History: No Reported History Additional Past Medical History / Comment(s): Migraine headache, thrombocytopenia, leukopenia, alcoholism History of Any Multi-Drug Resistant Organisms: None Reported Additional Past Surgical History / Comment(s): surgery for stomach ulcer, esophageal tear surgery Past Psychological History: Anxiety Smoking Status: Current every day smoker Past Alcohol Use History: None Reported Past Drug Use History: Marijuana Medications and Allergies Home Medications Medication Instructions Recorded Confirmed Type Calc/Mag/Zinc/Cassandra D 1 tab PO TID PRN 10/05/23 10/05/23 History Folic Acid 1 mg PO DAILY 10/05/23 10/05/23 History Ibuprofen [Motrin Ib] 600 mg PO Q4H PRN 10/05/23 10/05/23 History Lactulose 20 gm PO TID PRN 10/05/23 10/05/23 History Melatonin 3 mg PO HS 10/05/23 10/05/23 History Multivitamins, Thera [Multivitamin 1 tab PO DAILY 10/05/23 10/05/23 History (formulary)] Omeprazole [PriLOSEC] 20 mg PO DAILY 10/05/23 10/05/23 History Spironolactone [Aldactone] 50 mg PO DAILY 10/05/23 10/05/23 History Thiamine [Vitamin B-1] 100 mg PO DAILY 10/05/23 10/05/23 History Torsemide [Demadex] 10 mg PO DAILY 10/05/23 10/05/23 History busPIRone HCl [Buspar] 10 mg PO TID PRN 10/05/23 10/05/23 History Allergies Allergy/AdvReac Type Severity Reaction Status Date / Time acetaminophen Allergy Anaphylaxis Verified 10/05/23 11:17 [From Darvocet-N] amitriptyline Allergy Hallucinati Verified 10/05/23 11:17 ons propoxyphene Allergy Anaphylaxis Verified 10/05/23 11:17 [From Darvocet-N] trazodone Allergy Hallucinati Verified 10/05/23 11:17 ons Physical Exam Vitals: Vital Signs Temp Pulse Pulse Resp BP BP Pulse Ox 10/06/23 04:00 98.0 F 67 16 99/60 99 10/06/23 00:00 98.3 F 74 18 122/53 98 10/05/23 20:00 98.4 F 78 18 125/56 99 10/05/23 17:37 79 12 119/46 99 10/05/23 15:00 76 16 107/33 98 10/05/23 10:09 98.1 F 76 18 129/69 100 Intake and Output 10/05/23 10/06/23 10/06/23 22:59 06:59 14:59 Intake Total 10 Balance 10 Intake: IV 10 Invasive Line 1 10 Oral 0 Other: Voiding Method Toilet Toilet # Voids 1 2 Weight 52.617 kg General appearance: The patient is alert, oriented, appears in no acute distress. HET: Head is normocephalic and atraumatic. Conjunctiva pink. Sclera icteric. Neck: Supple without lymphadenopathy. Trachea midline. Heart: Regular. Lungs: Equal expansion, normal respiratory effort. Abdomen: Soft, right upper quadrant tenderness, hepatomegaly. Nondistended.No guarding or rigidity. Skin: No rashes. Deeply jaundiced. Extremities: Normal skin color and turgor. No pedal edema. Neurological: No focal deficits. Alert and oriented x3. Results CBC & Chem 7: 10/05/23 10:31 10/05/23 10:31 Labs: Abnormal Lab Results - Last 24 Hours (Table) 10/05/23 10/05/23 10/05/23 Range/Units 10:31 10:31 10:31 WBC 2.1 L (3.8-10.6) k/uL RBC 3.27 L (3.80-5.40) m/uL MCV 106.8 H (80.0-100.0) fL MCH 35.6 H (25.0-35.0) pg RDW 16.0 H (11.5-15.5) % Plt Count 19 L* (150-450) k/uL Neutrophils # 1.0 L (1.3-7.7) k/uL Lymphocytes # 0.7 L (1.0-4.8) k/uL Macrocytosis Marked A Total Bilirubin 5.2 H (0.2-1.3) mg/dL Unconjugated Bilirubin (0.0-1.1) mg/dL Delta Bilirubin (0.0-0.2) mg/dL AST 88 H (14-36) U/L ALT 37 H (4-34) U/L Troponin I 0.041 H* (0.000-0.034) ng/mL Amylase 123 H (30-110) U/L Lipase 460 H (23-300) U/L 10/05/23 10/05/23 10/05/23 Range/Units 11:38 15:01 18:13 WBC (3.8-10.6) k/uL RBC (3.80-5.40) m/uL MCV (80.0-100.0) fL MCH (25.0-35.0) pg RDW (11.5-15.5) % Plt Count (150-450) k/uL Neutrophils # (1.3-7.7) k/uL Lymphocytes # (1.0-4.8) k/uL Macrocytosis Total Bilirubin 5.2 H (0.2-1.3) mg/dL Unconjugated Bilirubin 3.1 H (0.0-1.1) mg/dL Delta Bilirubin 2.1 H (0.0-0.2) mg/dL AST (14-36) U/L ALT (4-34) U/L Troponin I 0.061 H* 0.058 H* (0.000-0.034) ng/mL Amylase (30-110) U/L Lipase (23-300) U/L Comments: CT angiogram abdomen and pelvis: No definitive evidence of active GI bleeding at this time. Cirrhosis with signs of portal venous hypertension including splenomegaly and recanalized umbilical vein. Cholelithiasis. Assessment and Plan (1) Hematemesis Narrative/Plan: 38-year-old female with a longstanding history of alcohol abuse who admits to drinking a pint to 1/5 daily was sent in from [facility] for hematemesis. Patient had 4-5 episodes yesterday darker blood mixed with clots according to the patient. Labs are consistent with liver disease, patient with severe thrombocytopenia with platelet count of 19,000. History of esophageal varices with recent EGD done about 2 months ago according to the patient at outside facility. Again we are likely dealing with alcoholic liver cirrhosis with portal hypertension and bleeding esophageal varices. Bleeding has subsided would recommend patient undergo endoscopic evaluation however patient's platelets are only 19,000 at this time. We will plan for platelet transfusion and recommendation is for transfer to a tertiary center with gastr oenterologist/advanced endoscopist to evaluate esophageal varices as there will be no gastroenterology available at this hospital through the weekend. This was discussed with the primary medical team who has agreed to start the transfer process to tertiary center. Current Visit: Yes Status: Acute Code(s): K92.0 - HEMATEMESIS SNOMED Code(s): 7174208 (2) Alcohol abuse Current Visit: Yes Status: Acute Code(s): F10.10 - ALCOHOL ABUSE, UNCOMPLICATED SNOMED Code(s): 09812854 (3) Portal hypertension Current Visit: Yes Status: Acute Code(s): K76.6 - PORTAL HYPERTENSION SNOMED Code(s): 62025870 (4) Alcoholic liver disease Current Visit: Yes Status: Acute Code(s): K70.9 - ALCOHOLIC LIVER DISEASE, UNSPECIFIED SNOMED Code(s): 63575658 (5) Elevated troponin Narrative/Plan: Cardiology on consultation Current Visit: Yes Status: Acute Code(s): R79.89 - OTHER SPECIFIED ABNORMAL FINDINGS OF BLOOD CHEMISTRY SNOMED Code(s): 412263770 (6) Thrombocytopenia Current Visit: Yes Status: Acute Code(s): D69.6 - THROMBOCYTOPENIA, UNSPECIFIED SNOMED Code(s): 274472475 Plan: 1. Continue symptomatic and supportive care 2. Keep n.p.o. 3. Protonix 40 mg daily 4. Repeat CBC, CMP, INR, get ammonia level 5. Transfused 2 units of platelets 6. Hold any anticoagulation, avoid NSAIDs 7. Recommend transfer to tertiary hospital with operations scheduler/advanced endoscopist available. This has been discussed with the primary medical team who is starting the transfer process. Thank you for allowing us to participate in the care of the patient, the GI service will sign off, gastroenterology will not be available at the hospital this weekend and recommend transfer to a tertiary center. Dr. Ronak Fuchs I agree with the dictator's note, documented as a scribe by Yesenia Doan.
[2023-10-06 10:17] LABS: HCT 28.2 % (34.0-46.0); MCHC 33.9 g/dL (31.0-37.0); MCV 106.2 fL (80.0-100.0); Macrocytosis Moderate; Mean Platelet Volume 11.5; RBC 2.65 m/uL (3.80-5.40); RDW 15.6 % (11.5-15.5)
[2023-10-06 10:26] LABS: INR 1.6 (<1.2); Partial Thromboplastin Time 30.3 sec (22.0-30.0); Prothrombin Time 16.4 sec (10.0-12.5); WBC 1.3 k/uL (3.8-10.6)
[2023-10-06 10:28] LABS: HGB 9.6 gm/dL (11.4-16.0); Platelet Count 17 k/uL (150-450)
[2023-10-06 10:44] LABS: ALT 35 U/L (4-34); AST 96 U/L (14-36); African American GFR (CKD) >90 (>60 ml/min/1.73 sqM); Albumin 2.7 g/dL (3.5-5.0); Alkaline Phosphatase 68 U/L (38-126); Anion Gap 4 mmol/L; Blood Urea Nitrogen 12 mg/dL (7-17); Calcium 8.3 mg/dL (8.4-10.2); Carbon Dioxide 25 mmol/L (22-30); Chloride 106 mmol/L (98-107); Glucose 89 mg/dL (74-99); Lipase 155 U/L (23-300); Non-African American GFR(CKD) >90 (>60 ml/min/1.73 sqM); Potassium 3.7 mmol/L (3.5-5.1); Sodium 135 mmol/L (137-145); Total Bilirubin 4.6 mg/dL (0.2-1.3); Total Protein 5.8 g/dL (6.3-8.2)
--- NOTE | 2023-10-06 10:59 | P.CRDCN ---
History of Present Illness Consult date: 10/06/23 Reason for Consult (text): Elevated troponin History of present illness: History of present illness: This is a 38-year-old female with past medical history of esophageal varices, history of alcohol abuse, chronic thrombocytopenia. Patient presented to [facility] center from [place] due to vomiting blood. We have been asked to evaluate the patient for elevated troponins. Patient denies having any chest pain, no shortness of breath. She does have shortness of breath with ambulation. No lower extremity edema. She complains of some lightheadedness without syncope. Patient does have history of smoking a nd marijuana use. Her last alcohol intake was on 09/26. She denies any illicit drug use. She states she has had workup done at [facility] by nursing specialist and most recently was in [facility] in [place]. Patient states that she has had an evaluation of her cardiac valves at [facility] but was not thought to be a good candidate for any surgical intervention. EKG sinus rhythm CTA abdomen pelvis revealed no definite evidence of active GI bleeding. Cirrhosis with signs of portal venous hypertension chronic splenomegaly and recanalized umbilical vein. Cholelithiasis. WBC 1.3, hemoglobin 9.6, platelet count 17. INR 1.6. Electrolytes and renal function are within normal limits. AST 88, ALT 37, alkaline phosphatase 99. Troponin 0.041, 0.061 and 0.058. Ammonia level 35. Amylase 123, lipase 460. hCG not detected. Home cardiac medications: Spironolactone 50 mg daily, torsemide 10 mg daily. Review Of Systems: At the time of my exam: CONSTITUTIONAL: Denies fever or chills. HEENT: Denies blurred vision, vision changes, or eye pain. Denies hemoptysis CARDIOVASCULAR: Denies chest pain. Denies orthopnea. Denies PND. Denies palpitations RESPIRATORY: Denies shortness of breath. GASTROINTESTINAL: Denies abdominal pain. Denies nausea or vomiting. HEMATOLOGIC: Denies bleeding disorders. GENITOURINARY: Denies any blood in urine. SKIN: Denies pruitis. Denies rash. Physical examination: Gen: This is a pleasant 38-year-old female in no acute distress. VS: reviewed blood pressure 99/60, heart rate 67, pulse ox 99% on room air. HEENT: Head is atraumatic, normocephalic. Pupils equal, round. Sclerae is anicteric. NECK: Supple. No carotid bruit LUNGS: Clear to auscultation. No wheezes or rhonchi. No intercostal retractions. HEART: Regular rate and rhythm. Holosystolic murmur at the apex, diastolic murmur. ABDOMEN: Soft No tenderness. EXTREMITIES: No pedal edema. No calf tenderness. NEUROLOGICAL: Patient is awake, alert and oriented x3. Assessment: Elevated troponin most likely a type II event due to anemia Pancytopenia Coagulopathy Cirrhosis of the liver Acute GI bleed Plan: Resume patient's home cardiac medications Obtain 2-D echocardiogram and Doppler study to assess cardiac structure and function No plan for aggressive ischemic cardiac workup at this time due to pancytopenia and other comorbidities. No cardiology records are available at [facility] in [place]. Further recommendations to follow based upon clinical course Thank you kindly for this consultation. Nurse practitioner note has been reviewed, I agree with documented findings and plan of care. Patient was seen and examined. Past Medical History Past Medical History: No Reported History Additional Past Medical History / Comment(s): Migraine headache, thrombocytopenia, leukopenia, alcoholism History of Any Multi-Drug Resistant Organisms: None Reported Additional Past Surgical History / Comment(s): surgery for stomach ulcer, esophageal tear surgery Past Psychological History: Anxiety Smoking Status: Current every day smoker Past Alcohol Use History: None Reported Past Drug Use History: Marijuana Medications and Allergies Home Medications Medication Instructions Recorded Confirmed Type Calc/Mag/Zinc/Cassandra D 1 tab PO TID PRN 10/05/23 10/05/23 History Folic Acid 1 mg PO DAILY 10/05/23 10/05/23 History Ibuprofen [Motrin Ib] 600 mg PO Q4H PRN 10/05/23 10/05/23 History Lactulose 20 gm PO TID PRN 10/05/23 10/05/23 History Melatonin 3 mg PO HS 10/05/23 10/05/23 History Multivitamins, Thera [Multivitamin 1 tab PO DAILY 10/05/23 10/05/23 History (formulary)] Omeprazole [PriLOSEC] 20 mg PO DAILY 10/05/23 10/05/23 History Spironolactone [Aldactone] 50 mg PO DAILY 10/05/23 10/05/23 History Thiamine [Vitamin B-1] 100 mg PO DAILY 10/05/23 10/05/23 History Torsemide [Demadex] 10 mg PO DAILY 10/05/23 10/05/23 History busPIRone HCl [Buspar] 10 mg PO TID PRN 10/05/23 10/05/23 History Allergies Allergy/AdvReac Type Severity Reaction Status Date / Time acetaminophen Allergy Anaphylaxis Verified 10/05/23 11:17 [From Darvocet-N] amitriptyline Allergy Hallucinati Verified 10/05/23 11:17 ons propoxyphene Allergy Anaphylaxis Verified 10/05/23 11:17 [From Darvocet-N] trazodone Allergy Hallucinati Verified 10/05/23 11:17 ons Physical Exam Vitals: Vital Signs Temp Pulse Pulse Resp BP BP Pulse Ox 10/06/23 04:00 98.0 F 67 16 99/60 99 10/06/23 00:00 98.3 F 74 18 122/53 98 10/05/23 20:00 98.4 F 78 18 125/56 99 10/05/23 17:37 79 12 119/46 99 10/05/23 15:00 76 16 107/33 98 10/05/23 10:09 98.1 F 76 18 129/69 100 Intake and Output 10/05/23 10/06/23 10/06/23 22:59 06:59 14:59 Intake Total 10 Balance 10 Intake: IV 10 Invasive Line 1 10 Oral 0 Other: Voiding Method Toilet Toilet # Voids 1 2 Weight 52.617 kg Results 10/06/23 09:55 10/05/23 10:31 Cardiac Enzymes 10/05/23 10/05/23 10/05/23 Range/Units 10:31 10:31 15:01 AST 88 H (14-36) U/L Troponin I 0.041 H* 0.061 H* (0.000-0.034) ng/mL 10/05/23 Range/Units 18:13 AST (14-36) U/L Troponin I 0.058 H* (0.000-0.034) ng/mL CBC 10/05/23 Range/Units 10:31 WBC 2.1 L (3.8-10.6) k/uL RBC 3.27 L (3.80-5.40) m/uL Hgb 11.7 (11.4-16.0) gm/dL Hct 35.0 (34.0-46.0) % Plt Count 19 L* (150-450) k/uL Comprehensive Metabolic Panel 10/05/23 10/05/23 Range/Units 10:31 11:38 Sodium 137 (137-145) mmol/L Potassium 3.6 (3.5-5.1) mmol/L Chloride 104 (98-107) mmol/L Carbon Dioxide 24 (22-30) mmol/L BUN 15 (7-17) mg/dL Creatinine 0.75 (0.52-1.04) mg/dL Glucose 87 (74-99) mg/dL Calcium 9.2 (8.4-10.2) mg/dL Unconjugated Bilirubin 3.1 H (0.0-1.1) mg/dL AST 88 H (14-36) U/L ALT 37 H (4-34) U/L Alkaline Phosphatase 99 (38-126) U/L Total Protein 7.1 (6.3-8.2) g/dL Albumin 3.5 (3.5-5.0) g/dL Current Medications Generic Name Dose Route Start Last Admin Trade Name Freq PRN Reason Stop Dose Admin Buspirone HCl 10 mg 10/05/23 13:22 10/05/23 20:33 Buspirone Hcl 10 Mg Tab PO 10 mg TID PRN Administration Anxiety Folic Acid 1 mg 10/06/23 09:00 Folic Acid 1 Mg Tab PO DAILY GERMAINE Lactulose 20 gm 10/05/23 13:22 10/05/23 17:32 Lactulose 20 Gm/30 Ml Cup PO 20 gm TID PRN Administration Constipation Lorazepam 1 mg 10/05/23 21:16 10/05/23 22:12 Lorazepam 2 Mg/Ml Inj IV 1 mg Q1HR PRN Administration CIWA 10 to 15 Lorazepam 1 mg 10/05/23 21:16 Lorazepam 2 Mg/Ml Inj IV Q2HR PRN CIWA 8 or 9 Lorazepam 2 mg 10/05/23 21:16 Lorazepam 2 Mg/Ml Inj IV 10/07/23 21:17 Q10M PRN CIWA 16 or higher Melatonin 3 mg 10/05/23 21:00 10/05/23 20:34 Melatonin 3 Mg Tablet PO Not Given HS GERMAINE Morphine Sulfate 4 mg 10/05/23 13:19 Morphine Sulfate 4 Mg/Ml Syringe IV Q4HR PRN Severe Pain (Scale 7 to 10) Morphine Sulfate 2 mg 10/05/23 13:21 10/06/23 06:29 Morphine Sulfate 2 Mg/Ml Syringe IVP 2 mg Q4HR PRN Administration Moderate Pain (Scale 4 to 6) Multivitamins 1 each 10/06/23 09:00 Multivitamins, Thera 1 Each Tab PO DAILY GERMAINE Naloxone HCl 0.2 mg 10/05/23 13:19 Naloxone 0.4 Mg/Ml 1 Ml Vial IV Q2M PRN Opioid Reversal Ondansetron HCl 4 mg 10/05/23 13:19 10/05/23 17:33 Ondansetron 4 Mg/2 Ml Vial IVP 4 mg Q8HR PRN Administration Nausea And Vomiting Pantoprazole Sodium 40 mg 10/06/23 09:00 Pantoprazole 40 Mg/10 Ml Vial IV DAILY GERMAINE Spironolactone 50 mg 10/06/23 09:00 Spironolactone 25 Mg Tab PO DAILY GERMAINE Thiamine HCl 100 mg 10/06/23 09:00 Thiamine 100 Mg Tab PO DAILY GERMAINE Torsemide 10 mg 10/06/23 09:00 Torsemide 20 Mg Tab PO DAILY GERMAINE Intake and Output 10/05/23 10/06/23 10/06/23 22:59 06:59 14:59 Intake Total 10 Balance 10 Intake: IV 10 Invasive Line 1 10 Oral 0 Other: Voiding Method Toilet Toilet # Voids 1 2 Weight 52.617 kg 10/05/23 10:31 10/05/23 10:31
--- NOTE | 2023-10-06 11:25 | CA ---
Transthoracic Echo Report Name: Bertha Gonzalez Age: 38 Gender: F : 1985 Exam Date: 10/06/2023 09:41 Exam Location: [facility] Ht (in): 61 Wt (lb): 116 Ordering Physician: Tammie Guadarrama Attending/Referring Phys: [id number], Thierry Doctor Of Dental Medicine Criss Jackson RCS Procedure CPT: Indications: LVF Cardiac Hx: Technical Quality: Good Contrast 1: Total Dose (mL): Contrast 2: Total Dose (mL): MEASUREMENTS (Male / Female) Normal Values 2D ECHO LV Diastolic Diameter PLAX 6.5 cm 4.2 - 5.9 / 3.9 - 5.3 cm LV Systolic Diameter PLAX 4.5 cm IVS Diastolic Thickness 0.5 cm 0.6 - 1.0 / 0.6 - 0.9 cm LVPW Diastolic Thickness 0.8 cm 0.6 - 1.0 / 0.6 - 0.9 cm LV Relative Wall Thickness 0.2 RV Internal Dim ED PLAX 2.3 cm LVOT Diameter 1.8 cm LV Diastolic Volume MOD BP 264.3 cm??? 67 - 155 / 56 - 104 cm??? LV Systolic Volume MOD BP 122.9 cm??? 22 - 58 / 19 - 49 cm??? LV Ejection Fraction MOD BP 53.5 % >= 55 % LV Diastolic Volume MOD 4C 265.0 cm??? LV Systolic Volume MOD 4C 131.5 cm??? LV Ejection Fraction MOD 4C 50.4 % LV Diastolic Length 4C 10.3 cm LV Systolic Length 4C 9.1 cm LV Diastolic Volume MOD 2C 257.8 cm??? LV Systolic Volume MOD 2C 111.9 cm??? LV Ejection Fraction MOD 2C 56.6 % LV Diastolic Length 2C 10.1 cm LV Systolic Length 2C 8.9 cm LA Volume 79.4 cm??? 18 - 58 / 22 - 52 cm??? LA Volume Index 52.6 cm???/m??? 16 - 28 cm???/m??? Ascending Aorta Diameter 2.3 cm DOPPLER AV Peak Velocity 262.0 cm/s AV Peak Gradient 27.4 mmHg AV Mean Velocity 173.3 cm/s AV Mean Gradient 13.9 mmHg AV Velocity Time Integral 67.2 cm AI Peak Velocity 444.1 cm/s AI Peak Gradient 78.9 mmHg AI Pressure Half Time 271.1 ms MV Area PHT 3.1 cm??? Mitral E Point Velocity 90.3 cm/s Mitral A Point Velocity 79.7 cm/s Mitral E to A Ratio 1.1 MV Deceleration Time 244.0 ms PV Peak Velocity 114.6 cm/s PV Peak Gradient 5.3 mmHg FINDINGS Left Ventricle Left ventricular ejection fraction is estimated at 50-55 %. Severely increased left ventricular diastolic diameter. Severely increased left ventricular diastolic volume. Severely increased left ventricular systolic volume. No obvious regional wall motion abnormalities. Right Ventricle Normal right ventricular size and function. Unable to estimate right ventricular systolic pressure. Right Atrium Normal right atrial size. Left Atrium Severely increased left atrial volume. Mildly increased left atrial area. Mitral Valve Structurally normal mitral valve. No evidence for mitral valve prolapse. No mitral stenosis. Mild mitral regurgitation. Aortic Valve Trileaflet aortic valve. No aortic stenosis. Severe aortic regurgitation. Holodiastolic flow reversal in the descending aorta. Tricuspid Valve Structurally normal tricuspid valve. No tricuspid stenosis. Trace tricuspid regurgitation. Pulmonic Valve Structurally normal pulmonic valve. No pulmonic stenosis. No pulmonic regurgitation. Pericardium No pericardial effusion. Aorta Normal size aortic root and proximal ascending aorta. CONCLUSIONS Normal LV systolic function An echodensity was identified on the aortic valve with severe aortic regurgitation. Finding concerning for endocarditis Previewed by: Dr. Vikram Alonso MD (Electronically Signed) Final Date: 06 October 2023 11:25
[2023-10-06 13:23] LABS: Reticulocyte % 3.5 % (0.5-2.0)
[2023-10-06 13:43] LABS: Vitamin B12 >1800.0 pg/mL (200.0-944.0)
[2023-10-06] MEDS: LACTULOSE 20 GM/30 ML CUP PO SCH (13:59)
[2023-10-06] MEDS: LORazepam 2 MG/ML INJ IV PRN (13:59)
[2023-10-06] MEDS: PHYTONADIONE 2.5 MG in SODIUM CHLORIDE 0.9% 50 ML IVPB STA (14:00)
--- NOTE | 2023-10-06 14:22 | P.CONS ---
History of Present Illness - Reason for Consult Consult date: 10/06/23 leukopenia/thrombocytopenia Requesting physician: Samia Jimenez - Chief Complaint hematemesis - History of Present Illness This is a 38-year-old female with a significant history of ETOH abuse. Consult was placed for leukopenia and thrombocytopenia. She was referred to Dr. Cho in October 2021, but never showed up to her appt. Patient Presented to emergency room for hematemesis. She was at [place] for alcohol rehabilitation and started vomiting blood, 4-5 episodes. She reports that she does not follow with any liver specialist. She was recently hospitalized at [facility] and underwent EGD showing esophageal varices. At today's visit patient is reporting upper abdominal pain. Reports vomiting has subsided but is still bringing up small clots. Upon admission CBC revealed WBC 2.1, ANC C 1000. Hemoglobin 11.7, MCV 106.8. Platelets 19,000. Upon t rending labs, thrombocytopenia noted since 09/2021, plts 36,000 at that time, no labs previous to that visit. Bilirubin 5.2, AST 88, ALT 37. Amylase 127, lipase 460. Folate 29.3, vitamin B12 pending. CTA abdomen pelvis revealed no definitive evidence of acute active GI bleeding. Cirrhosis with signs of portal venous hypertension including splenomegaly and recanalized umbilical vein. Cholelithiasis. GI consulted, recommending transfer to tertiary center for further management. 2 dose platelets ordered Review of Systems 10 point ROS is negative except as stated in the HPI Past Medical History Past Medical History: No Reported History Additional Past Medical History / Comment(s): Migraine headache, thrombocytopenia, leukopenia, alcoholism History of Any Multi-Drug Resistant Organisms: None Reported Additional Past Surgical History / Comment(s): surgery for stomach ulcer, esophageal tear surgery Past Psychological History: Anxiety Smoking Status: Current every day smoker Past Alcohol Use History: None Reported Past Drug Use History: Marijuana Medications and Allergies Home Medications Medication Instructions Recorded Confirmed Type Calc/Mag/Zinc/Cassandra D 1 tab PO TID PRN 10/05/23 10/05/23 History Folic Acid 1 mg PO DAILY 10/05/23 10/05/23 History Ibuprofen [Motrin Ib] 600 mg PO Q4H PRN 10/05/23 10/05/23 History Lactulose 20 gm PO TID PRN 10/05/23 10/05/23 History Melatonin 3 mg PO HS 10/05/23 10/05/23 History Multivitamins, Thera [Multivitamin 1 tab PO DAILY 10/05/23 10/05/23 History (formulary)] Omeprazole [PriLOSEC] 20 mg PO DAILY 10/05/23 10/05/23 History Spironolactone [Aldactone] 50 mg PO DAILY 10/05/23 10/05/23 History Thiamine [Vitamin B-1] 100 mg PO DAILY 10/05/23 10/05/23 History Torsemide [Demadex] 10 mg PO DAILY 10/05/23 10/05/23 History busPIRone HCl [Buspar] 10 mg PO TID PRN 10/05/23 10/05/23 History Allergies Allergy/AdvReac Type Severity Reaction Status Date / Time acetaminophen Allergy Anaphylaxis Verified 10/05/23 11:17 [From Darvocet-N] amitriptyline Allergy Hallucinati Verified 10/05/23 11:17 ons propoxyphene Allergy Anaphylaxis Verified 10/05/23 11:17 [From Darvocet-N] trazodone Allergy Hallucinati Verified 10/05/23 11:17 ons Physical Exam Vitals: Vital Signs Temp Pulse Pulse Resp BP BP Pulse Ox 10/06/23 08:00 98.0 F 68 16 85/55 99 10/06/23 04:00 98.0 F 67 16 99/60 99 10/06/23 00:00 98.3 F 74 18 122/53 98 10/05/23 20:00 98.4 F 78 18 125/56 99 10/05/23 17:37 79 12 119/46 99 10/05/23 15:00 76 16 107/33 98 Intake and Output 10/05/23 10/06/23 10/06/23 22:59 06:59 14:59 Intake Total 10 Balance 10 Intake: IV 10 Invasive Line 1 10 Oral 0 Other: Voiding Method Toilet Toilet # Voids 1 2 Weight 52.617 kg - Constitutional General appearance: no acute distress - EENT Eyes: EOMI, scleral icterus ENT: hearing grossly normal - Respiratory Breathing even and unlabored - Cardiovascular Skin warm and dry - Gastrointestinal mild distention General gastrointestinal: tenderness Localized gastrointestinal: tender: RUQ, LUQ, epigastric periumbilical - Integumentary Integumentary: no cyanotic, jaundiced - Neurologic Grossly intact - Musculoskeletal Musculoskeletal: strength equal bilaterally - Psychiatric Psychiatric: A&O x's 3 Results CBC & Chem 7: 10/06/23 09:55 10/06/23 09:55 Labs: Abnormal Lab Results - Last 24 Hours (Table) 10/05/23 10/05/23 10/05/23 Range/Units 11:38 15:01 18:13 WBC (3.8-10.6) k/uL RBC (3.80-5.40) m/uL Hgb (11.4-16.0) gm/dL Hct (34.0-46.0) % MCV (80.0-100.0) fL MCH (25.0-35.0) pg RDW (11.5-15.5) % Plt Count (150-450) k/uL PT (10.0-12.5) sec INR (<1.2) APTT (22.0-30.0) sec Sodium (137-145) mmol/L Calcium (8.4-10.2) mg/dL Total Bilirubin 5.2 H (0.2-1.3) mg/dL Unconjugated Bilirubin 3.1 H (0.0-1.1) mg/dL Delta Bilirubin 2.1 H (0.0-0.2) mg/dL AST (14-36) U/L ALT (4-34) U/L Ammonia (<30) umol/L Troponin I 0.061 H* 0.058 H* (0.000-0.034) ng/mL Total Protein (6.3-8.2) g/dL Albumin (3.5-5.0) g/dL 10/06/23 10/06/23 10/06/23 Range/Units 09:55 09:55 09:55 WBC 1.3 L* (3.8-10.6) k/uL RBC 2.65 L (3.80-5.40) m/uL Hgb 9.6 L D (11.4-16.0) gm/dL Hct 28.2 L (34.0-46.0) % MCV 106.2 H (80.0-100.0) fL MCH 36.0 H (25.0-35.0) pg RDW 15.6 H (11.5-15.5) % Plt Count 17 L* (150-450) k/uL PT (10.0-12.5) sec INR (<1.2) APTT (22.0-30.0) sec Sodium 135 L (137-145) mmol/L Calcium 8.3 L (8.4-10.2) mg/dL Total Bilirubin 4.6 H (0.2-1.3) mg/dL Unconjugated Bilirubin (0.0-1.1) mg/dL Delta Bilirubin (0.0-0.2) mg/dL AST 96 H (14-36) U/L ALT 35 H (4-34) U/L Ammonia 35 H (<30) umol/L Troponin I (0.000-0.034) ng/mL Total Protein 5.8 L (6.3-8.2) g/dL Albumin 2.7 L (3.5-5.0) g/dL 10/06/23 Range/Units 09:55 WBC (3.8-10.6) k/uL RBC (3.80-5.40) m/uL Hgb (11.4-16.0) gm/dL Hct (34.0-46.0) % MCV (80.0-100.0) fL MCH (25.0-35.0) pg RDW (11.5-15.5) % Plt Count (150-450) k/uL PT 16.4 H (10.0-12.5) sec INR 1.6 H (<1.2) APTT 30.3 H (22.0-30.0) sec Sodium (137-145) mmol/L Calcium (8.4-10.2) mg/dL Total Bilirubin (0.2-1.3) mg/dL Unconjugated Bilirubin (0.0-1.1) mg/dL Delta Bilirubin (0.0-0.2) mg/dL AST (14-36) U/L ALT (4-34) U/L Ammonia (<30) umol/L Troponin I (0.000-0.034) ng/mL Total Protein (6.3-8.2) g/dL Albumin (3.5-5.0) g/dL CT scan - abdomen: report reviewed CT scan - pelvis: report reviewed Assessment and Plan (1) Alcohol abuse Current Visit: Yes Status: Acute Priority: High Code(s): F10.10 - ALCOHOL ABUSE, UNCOMPLICATED SNOMED Code(s): 61196713 (2) Alcoholic liver disease Current Visit: Yes Status: Acute Priority: High Code(s): K70.9 - ALCOHOLIC LIVER DISEASE, UNSPECIFIED SNOMED Code(s): 43212265 (3) Hematemesis Current Visit: Yes Status: Acute Priority: High Code(s): K92.0 - HEMATEMESIS SNOMED Code(s): 5439271 (4) Thrombocytopenia Current Visit: Yes Status: Acute Priority: High Code(s): D69.6 - TH ROMBOCYTOPENIA, UNSPECIFIED SNOMED Code(s): 220011161 (5) Pancytopenia Current Visit: Yes Status: Acute Priority: High Code(s): D61.818 - OTHER PANCYTOPENIA SNOMED Code(s): 080979365 Plan: Hematemesis: Presented with hematemesis. Significant history of ETOH abuse and cirrhosis. She was at [place] for alcohol rehabilitation and started vomiting blood, 4-5 episodes. Vomiting has since subsided, but still reporting bringing up small clots. She was recently hospitalized at [facility] and underwent EGD showing esophageal varices. -Upon admission hgb 11.7, plts 19,000. Bilirubin 5.2, AST 88, ALT 37. Amylase 127, lipase 460. CTA abdomen pelvis revealed no definitive evidence of acute active GI bleeding. Cirrhosis with signs of portal venous hypertension including splenomegaly and recanalized umbilical vein. Cholelithiasis -GI consulted, recommending transfer to tertiary center for further management Pancytopenia: She was referred to Dr. Cho in October 2021 for thrombocytopenia, but never showed up to her appt. We have been consulted inpt for further evaluation -Upon admission CBC revealed WBC 2.1, ANC 1000. Hemoglobin 11.7, MCV 106.8. Platelets 19,000. Upon trending labs, thrombocytopenia noted since 09/2021, plts 36,000 at that time, no labs previous to that visit to trend -CBC today showing hgb 9.6, plts 17,000, WBC 1.3. 2 doses platelets ordered by GI -Coags elevated, fibrinogen 236, negative for DIC. Will order IV vitamin K 2.5mg - Folate 29.3, vitamin B 12 pending. Will order rest of anemia labs and hemolysis workup - Cytopenias r/t liver disease/cirrhosis and acute GI bleed - CBC daily. Please transfuse for hemoglobin less than 7 and for platelets less than 10,000 or if symptomatic
[2023-10-06 16:09] LABS: Glucose,Whole Blood 86 mg/dL (70-110)
[2023-10-06] MEDS: ALBUMIN HUMAN 5% 500 ML in EMPTY BAG 1 BAG IVPB STA (16:25)
--- NOTE | 2023-10-06 16:45 | P.PN ---
Subjective Progress Note Date: 10/06/23 38-year-old female with a past medical history of migraine headaches, chronic thrombocytopenia, alcohol use disorder, anxiety and currently everyday smoker and marijuana use presents to ER with complaints of spitting up blood. Patient is also complaining of epigastric abdominal pain. Patient is at [facility] and today morning she started having nausea send episode of vomiting. Since then she has been having spitting Gage with blood-tinged. Denies any blood clots. Patient states that she had history of vaginal tear about few months ago and status post repair at [facility]. Patient has been still drinking and recently admitted to [facility]. Denies any fever or chills. Denies any sputum production. Denies any significant cough. Patient states that she does have significant heart murmur and a leaky valve, supposed to get her valve surgery but could not be able to done due to her platelet count being too low.. EKG showed sinus rhythm with sinus arrhythmia CTA abdomen pelvis was done showed no definite evidence of active GI bleeding at this time. Cirrhosis with signs of portal hypertension including splenomegaly and recanalized umbilical vein. Cholelithiasis. Laboratory test showed WBC 2.1 hemoglobin 11.7 MCV 106.8 and platelets 19; Sodium 137 potassium 3.6 chloride 104 bicarb is 24 BUN 15 and creatinine 0.75 and blood sugar 87; Bilirubin level is 5.2 unconjugated 3.1; AST 88 ALT 37 alk phos 99; Troponin 0.041, 0.061 and 0.058; Amylase 123 and lipase 460 --Patient continues to throw up small sized clots; hemoglobin dropped down from 11.7 yesterday down to 9.6; platelets and WBCs continue to trend down; INR at 1.6 -- Blood pressure slowly trending down and is at 85/55 at the time of examination; patient will receive 5 units of platelets along with albumin 5% at 500 cc -- Discussed with GI via secure texting: GI is recommending patient be initiated on IV Sandostatin and transferred to ICU; transfer to a tertiary care center is recommended --Transfer process initiated; [facility] has no stepdown or ICU beds available; patient is excepted at [facility]; patient condition reported to Dr. Alvarado; patient is excepted for transfer to [facility] when bed is available Objective - Vital Signs Vital signs: Vital Signs Temp 98.0 F 10/06/23 08:00 Pulse 68 10/06/23 08:00 Resp 16 10/06/23 08:00 BP 85/55 10/06/23 08:00 Pulse Ox 99 10/06/23 08:00 FiO2 Intake & Output 10/05/23 10/06/23 10/06/23 18:59 06:59 18:59 Intake Total 10 Balance 10 Weight 52.617 kg 52.617 kg Intake: IV 10 Invasive Line 1 10 Oral 0 Other: Voiding Method Toilet # Voids 2 - Exam Patient is lying in the bed comfortably, no acute distress, awake alert and oriented.. HEENT: Normocephalic. Neck is supple. Pupils reactive. Nostrils clear. Oral cavity is moist. Neck reveals no JVD, carotid bruits, or thyromegaly. CHEST EXAMINATION: Trachea is central. Symmetrical expansion. Lung wong clear to auscultation and percussion. CARDIAC: Normal S1, S2 with no gallops. Systolic murmur present. ABDOMEN: Soft. Bowel sounds normal. No organomegaly. No abdominal bruits. Extremities: reveal no edema. No clubbing or cyanosis Neurologically awake, alert, oriented x3 with well-coordinated movements. No focal deficits noted Skin: No rash or skin lesions. Psychiatric: Coperative. Nonsuicidal, anxious Musculoskeletal: No joint swelling or deformity. Normal range of motion. - Labs CBC & Chem 7: 10/06/23 09:55 10/06/23 09:55 Labs: Abnormal Lab Results - Last 24 Hours (Table) 10/05/23 10/05/23 10/05/23 Range/Units 11:38 15:01 18:13 WBC (3.8-10.6) k/uL RBC (3.80-5.40) m/uL Hgb (11.4-16.0) gm/dL Hct (34.0-46.0) % MCV (80.0-100.0) fL MCH (25.0-35.0) pg RDW (11.5-15.5) % Plt Count (150-450) k/uL PT (10.0-12.5) sec INR (<1.2) APTT (22.0-30.0) sec Sodium (137-145) mmol/L Calcium (8.4-10.2) mg/dL Total Bilirubin 5.2 H (0.2-1.3) mg/dL Unconjugated Bilirubin 3.1 H (0.0-1.1) mg/dL Delta Bilirubin 2.1 H (0.0-0.2) mg/dL AST (14-36) U/L ALT (4-34) U/L Ammonia (<30) umol/L Troponin I 0.061 H* 0.058 H* (0.000-0.034) ng/mL Total Protein (6.3-8.2) g/dL Albumin (3.5-5.0) g/dL 10/06/23 10/06/23 10/06/23 Range/Units 09:55 09:55 09:55 WBC 1.3 L* (3.8-10.6) k/uL RBC 2.65 L (3.80-5.40) m/uL Hgb 9.6 L D (11.4-16.0) gm/dL Hct 28.2 L (34.0-46.0) % MCV 106.2 H (80.0-100.0) fL MCH 36.0 H (25.0-35.0) pg RDW 15.6 H (11.5-15.5) % Plt Count 17 L* (150-450) k/uL PT (10.0-12.5) sec INR (<1.2) APTT (22.0-30.0) sec Sodium 135 L (137-145) mmol/L Calcium 8.3 L (8.4-10.2) mg/dL Total Bilirubin 4.6 H (0.2-1.3) mg/dL Unconjugated Bilirubin (0.0-1.1) mg/dL Delta Bilirubin (0.0-0.2) mg/dL AST 96 H (14-36) U/L ALT 35 H (4-34) U/L Ammonia 35 H (<30) umol/L Troponin I (0.000-0.034) ng/mL Total Protein 5.8 L (6.3-8.2) g/dL Albumin 2.7 L (3.5-5.0) g/dL 10/06/23 Range/Units 09:55 WBC (3.8-10.6) k/uL RBC (3.80-5.40) m/uL Hgb (11.4-16.0) gm/dL Hct (34.0-46.0) % MCV (80.0-100.0) fL MCH (25.0-35.0) pg RDW (11.5-15.5) % Plt Count (150-450) k/uL PT 16.4 H (10.0-12.5) sec INR 1.6 H (<1.2) APTT 30.3 H (22.0-30.0) sec Sodium (137-145) mmol/L Calcium (8.4-10.2) mg/dL Total Bilirubin (0.2-1.3) mg/dL Unconjugated Bilirubin (0.0-1.1) mg/dL Delta Bilirubin (0.0-0.2) mg/dL AST (14-36) U/L ALT (4-34) U/L Ammonia (<30) umol/L Troponin I (0.000-0.034) ng/mL Total Protein (6.3-8.2) g/dL Albumin (3.5-5.0) g/dL Assessment and Plan Assessment: Hematemesis. Possible upper GI bleed. Patient is spitting up streaks of bright red blood with saliva. History of repeat of esophageal tear few months ago Alcohol use disorder currently at [facility] Evaded troponin level possible demand ischemia Valvular heart disease patient was told she is not a surgical candidate due to low platelet count. Chronic thrombocytopenia, leukopenia and macrocytosis due to alcoholic liver disease Alcohol liver cirrhosis with signs of portal hypertension Hyperbilirubinemia Alcoholic hepatitis with elevated liver enzymes Anxiety Current everyday smoker DVT prophylaxis SCDs Plan: Patient will be continued on PPI IV daily and gentle IV hydration. Started back on home blood pressure medications including torsemide and Aldactone and multiv itamin supplementation. Continue with alcohol withdrawal protocol. Monitor H&H. Follow-up serial troponins. Cardiology and GI and also hematology was consulted for evaluation. Follow-up closely.
[2023-10-06 17:11] LABS: HCT 33.6 % (34.0-46.0); HGB 11.1 gm/dL (11.4-16.0); Hypochromasia Slight; MCHC 33.1 g/dL (31.0-37.0); MCV 105.8 fL (80.0-100.0); Macrocytosis Moderate; Mean Platelet Volume 8.5; RBC 3.18 m/uL (3.80-5.40); RDW 15.8 % (11.5-15.5)
[2023-10-06 17:14] LABS: Platelet Count 13 k/uL (150-450); WBC 0.9 k/uL (3.8-10.6)
[2023-10-06] MEDS: OCTREOTIDE 500 MCG in SODIUM CHLORIDE 0.9% 250 ML IV STA (18:24)
[2023-10-06 20:20] LABS: % Iron Saturation 45.07 (12.00-45.00); Ferritin 88.3 ng/mL (10.0-291.0)
[2023-10-06 21:37] VITALS: BP 112/32; PULSE 96; RESP 14; TEMP 97.7
== END 2023-10-06 21:30 | disposition short-term general hospital (02) | DRG 253 ==
LOC: EC 10:04 → 3SCARD 11:48 → 2SICU 10-06 15:56
PROVIDERS: ADMIT Internal Medicine; ATTEND Internal Medicine
DX: K92.0 Hematemesis (principal); K70.30 Alcoholic cirrhosis of liver without ascites; I24.89 Other forms of acute ischemic heart disease; K70.10 Alcoholic hepatitis without ascites; K80.10 Calculus of gallbladder with chronic cholecystitis without obstruction; D69.6 Thrombocytopenia, unspecified; R16.1 Splenomegaly, not elsewhere classified; R01.1 Cardiac murmur, unspecified; I85.11 Secondary esophageal varices with bleeding; F41.9 Anxiety disorder, unspecified; K76.6 Portal hypertension; I08.3 Combined rheumatic disorders of mitral, aortic and tricuspid valves; Z79.899 Other long term (current) drug therapy; Z87.11 Personal history of peptic ulcer disease; G43.909 Migraine, unspecified, not intractable, without status migrainosus; Z87.19 Personal history of other diseases of the digestive system; Z88.6 Allergy status to analgesic agent; Z88.8 Allergy status to other drugs, medicaments and biological substances
CPT/HCPCS: 36415; 74174; 80053; 82140; 82150; 82248; 82607; 82728; 82746; 83010; 83540; 83550; 83605; 83615; 83690; 83921; 84484; 84703; 85025; 85027; 85045; 85384; 85610; 85730; 86850; 86870; 86880; 86900; 86901; 87635; 93005; 93306; 96374; 96375; 96376; 99285